=== PATIENT | female | born 1985 | race Two or more races ===

== ENCOUNTER 2017-03-12 21:08 | Emergency (ER) | payer SELFPAY ==
[2017-03-12 21:18] VITALS: BP 130/80; BMI 26.2
== END 2017-03-12 22:45 | disposition left against medical advice (07) ==
LOC: ER 21:23
DX: R10.84 Generalized abdominal pain (principal)
CPT/HCPCS: 99281

== ENCOUNTER 2017-05-23 19:12 | Emergency (ER) | payer SELFPAY ==
[2017-05-23 19:32] VITALS: BP 110/81; BMI 26.5
--- NOTE | 2017-05-23 19:42 | DR.GENAD ---
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 Past Surgical History Comment: tubal - Family History History of Family Medical Conditions: Yes Family Medical History: Coronary Artery Disease - Social History Does patient currently use any type of tobacco product: No Have you used tobacco products in the last 12 months: No Type of Tobacco Use: Cigarettes Does any household member use tobacco: No Alcohol Use: None Do you use any recreational Drugs:: No Lives With: Family Lives Where: Home - infectious screening In the last 2 months have you had wt loss of >10#?: NO Have you had fever, night sweats or hemotysis?: No Have you traveled outside the country in the last 6 months?: No Isolation: Standard ROS - Review of Systems Constitutional: negative: Diaphoresis Eyes: No Symptoms Reported ENTM: No Symptoms Reported Respiratoy: No Symptoms Reported Cardiovascular: No Symptoms Reported Gastrointestinal/Abdominal: No Symptoms Reported Genitourinary: No Symptoms Reported Neurological: No Symptoms Reported Musculoskeletal: Other (cellulitis superior anterior lateral back ) Integumentary: No Symptoms Reported Hematologic/Lymphatic: No Symptoms Reported Endocrine: No Symptoms Reported Psychiatric: No Symptoms Reported All Other Systems: Reviewed and Negative PE - Vital Signs Vitals: Temperature 97.9 F Pulse Rate 75 Respiratory Rate 14 Blood Pressure [Left Arm] 124/78 Blood Pressure 110/81 O2 Sat by Pulse Oximetry 99 - General Limitations: No Limitations General Appearance: Alert, In No Apparent Distress - Head Head Exam: Normal Inspection, Atraumatic - Eyes Eye exam: Normal Appearance, PERRL, EOMI - ENT ENT Exam: Normal Exam External Ear Exam: Normal External Inspection TM/Canal Exam: Bilateral Normal Nose Exam: Normal Nose Exam Mouth Exam: Normal Inspection Throat Exam: Normal Inspection - Chest Chest Inspection: Normal Inspection - Respiratory Respiratory Exam: Normal Lung Sounds Bilat Respiratory Exam: Bilateral Clear to Auscultation - Cardiovascular Cardiovascular Exam: Regular Rate - Abdominal Exam Abdominal Exam: Normal Inspection Abdominal Tenderness: negative: RUQ, RLQ, LUQ, LLQ, Epigastrium, Suprapubic, Diffuse, Mild, Moderate, Severe, Other - Extremities Extremities Exam: Normal Inspection - Back Back Exam: Normal Inspection, Tenderness (posterior superior lateral back with a 3cm dark erythematous lesion with ruptur centrally ) - Neurologic Neurological Exam: Alert, Oriented X3, CN II-XII Intact - Psychiatric Psychiatric Exam: Normal Affect - Skin Skin Exam: Warm, Dry, Intact Course - Treatment Treatment: ceftriaxone 1gm IM - Diagnosis Discharge Problem: Cellulitis of upper back excluding scapular region - Discharge Plan Condition: Stable - Follow ups/Referrals Follow ups/Referrals: NFD,None [Primary Care Provider] - 3 days - Instructions
[2017-05-23] MEDS ORDERED: ROCEPHIN VIAL 1 GM IM ONE (20:18)
[2017-05-23] MEDS ORDERED: ROCEPHIN VIAL 1 GM ONE (20:29)
== END 2017-05-23 20:45 | disposition home or self-care (01) ==
LOC: ER 19:12
DX: L03.312 Cellulitis of back [any part except buttock and flank] (principal); W57.XXXA Bitten or stung by nonvenomous insect and other nonvenomous arthropods, initial encounter; Y92.9 Unspecified place or not applicable
CPT/HCPCS: 96372; 99282; J0696

== ENCOUNTER 2017-12-03 21:04 | Emergency (ER) | payer SELFPAY ==
[2017-12-03 21:13] VITALS: BP 123/81; BMI 26.5
--- NOTE | 2017-12-03 21:38 | DR.GENAD ---
HPI - PCP Primary Care Physician: NFD - Complaint/Symptoms Chief Complaint Doctors Comments: Patient presents with complaint of RLQ pain and epigastric pain for one week. She denies vomiting or diarrhea or fever. Pain not relieved by tylenol/advil.The subxiphoid pain is sharp. 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 - Family History History of Family Medical Conditions: Yes Family Medical History: Coronary Artery Disease - Social History Does patient currently use any type of tobacco product: No Have you used tobacco products in the last 12 months: No Type of Tobacco Use: None Does any household member use tobacco: No Alcohol Use: None Do you use any recreational Drugs:: No Lives With: Family Lives Where: Home - infectious screening In the last 2 months have you had wt loss of >10#?: NO Have you had fever, night sweats or hemotysis?: No Have you traveled outside the country in the last 6 months?: No Isolation: Standard ROS - Review of Systems Eyes: No Symptoms Reported ENTM: No Symptoms Reported Respiratoy: No Symptoms Reported Cardiovascular: No Symptoms Reported Gastrointestinal/Abdominal: No Symptoms Reported Genitourinary: No Symptoms Reported Neurological: No Symptoms Reported Musculoskeletal: No Symptoms Reported Integumentary: No Symptoms Reported Hematologic/Lymphatic: No Symptoms Reported Endocrine: No Symptoms Reported Psychiatric: No Symptoms Reported All Other Systems: Reviewed and Negative PE - Vital Signs Vitals: Temperature 97.9 F Pulse Rate 73 Respiratory Rate 16 Blood Pressure [Left Arm] 124/78 Blood Pressure 123/81 O2 Sat by Pulse Oximetry 99 - General Limitations: Language Barrier General Appearance: Alert, In No Apparent Distress - Head Head Exam: Normal Inspection, Atraumatic - Eyes Eye exam: Normal Appearance, PERRL, Scleral Icterus - ENT ENT Exam: Normal Exam External Ear Exam: Normal External Inspection TM/Canal Exam: Bilateral Normal Nose Exam: Normal Nose Exam, Sinus Tenderness Mouth Exam: Normal Inspection Throat Exam: Normal Inspection - Neck Neck Exam: Normal Inspection, Full ROM - Chest Chest Inspection: Normal Inspection - Respiratory Respiratory Exam: Normal Lung Sounds Bilat Respiratory Exam: Bilateral Clear to Auscultation - Cardiovascular Cardiovascular Exam: Regular Rate, Normal Rhythm - Abdominal Exam Abdominal Exam: Normal Inspection, Normal Bowel Sounds Abdominal Tenderness: RLQ, LLQ, Epigastrium - Extremities Extremities Exam: Normal Inspection - Back Back Exam: Normal Inspection. negative: (R) CVA Tenderness, (L) CVA Tenderness - Neurologic Neurological Exam: Alert, Oriented X3, CN II-XII Intact - Psychiatric Psychiatric Exam: Normal Affect, Normal Mood - Skin Skin Exam: Warm, Dry, Intact Course - Reevaluation 1st: Unchanged ROR - Labs Reviewed Laboratory: C-Reactive Protein 1.30 mg/L (0-3.0) 12/03/17 22:03 Specimen Type Clean catch urine 12/03/17 21:56 Urine Color Yellow (YELLOW) 12/03/17 21:56 Urine Appearance Hazy (CLEAR) 12/03/17 21:56 Urine pH 7.0 (5.0 - 8.0) 12/03/17 21:56 Ur Specific Silva 1.015 (1.000-1.030) 12/03/17 21:56 Urine Protein Negative (NEGATIVE) 12/03/17 21:56 Urine Glucose (UA) Negative (NEGATIVE) 12/03/17 21:56 Urine Ketones Negative (NEGATIVE) 12/03/17 21:56 Urine Occult Blood Negative (NEGATIVE) 12/03/17 21:56 Urine Nitrite Negative (NEGATIVE) 12/03/17 21:56 Urine Bilirubin Negative (NEGATIVE) 12/03/17 21:56 Urine Urobilinogen Normal (NORMAL) 12/03/17 21:56 Ur Leukocyte Esterase Negative (NEGATIVE) 12/03/17 21:56 Urine RBC 0-3 /HPF (NONE SEEN) 12/03/17 21:56 Urine WBC 0-3 /HPF (NONE SEEN) 12/03/17 21:56 Ur Squamous Epith Cells Moderate /HPF (NEGATIVE) 12/03/17 21:56 Amorphous Sediment 1+ /HPF (NEGATIVE) 12/03/17 21:56 Urine Bacteria Trace /HPF (NEGATIVE) 12/03/17 21:56 Ur Culture Indicated? No/not indicated 12/03/17 21:56 H. pylori IgG Antibody Negative (NEGATIVE) 12/03/17 22:03 - XRAY XRAY Interpreted by: Radiologist (Acute Abdomen: Chest clear; abodmen constipation) - Diagnosis Discharge Problem: Constipation Qualifiers: Constipation type: slow transit constipation Qualified Code(s): K59.01 - Slow transit constipation - Discharge Plan Condition: Stable - Follow ups/Referrals Follow ups/Referrals: NFD,None [Primary Care Provider] - 3 days - Instructions
[2017-12-03] MEDS ORDERED: TORADOL 60 MG VIAL ONE (21:50)
[2017-12-03] MEDS ORDERED: TORADOL 60 MG VIAL IM ONE (21:50)
--- NOTE | 2017-12-03 22:25 | RAD ---
Abdominal series with PA chest Indication: Epigastric pain Comparison: None Findings: The heart size is normal and the lungs are essentially clear. No significant pleural abnorm ality. There is moderate colonic stool burden. The bowel gas pattern is nonobstructed. No free air or suspicious calcifications identified. Impression: No acute process. Suggestion of constipation. Reported By:
[2017-12-03 22:30] LABS: BILIRUBIN,URINE NEGATIVE (NEGATIVE); BLOOD/HEMOGLOBIN,URINE NEGATIVE (NEGATIVE); GLUCOSE, URINE NEGATIVE (NEGATIVE); KETONES,URINE NEGATIVE (NEGATIVE); LEUKOCYTE ESTERASE ,URINE NEGATIVE (NEGATIVE); NITRITES,URINE NEGATIVE (NEGATIVE); PROTEIN,URINE NEGATIVE (NEGATIVE); UROBILINOGEN,URINE NORMAL (NORMAL)
[2017-12-03 22:45] LABS: APPEARANCE,URINE HAZY (CLEAR); BACTERIA,URINE TRACE /HPF (NEGATIVE); COLOR,URINE YELLOW (YELLOW); RBC,URINE 0-3 /HPF (NONE SEEN); SQUAMOUS EPITHELIAL CELL,UR MODERATE /HPF (NEGATIVE)
[2017-12-03 22:46] LABS: AMORPHOUS SEDIMENT,UR 1+ /HPF (NEGATIVE)
[2017-12-03] MEDS ORDERED: CITROMA PO ONE (23:17)
[2017-12-03] MEDS ORDERED: CITROMA ONE (23:19)
== END 2017-12-03 23:24 | disposition home or self-care (01) ==
LOC: ER 21:23
DX: K59.01 Slow transit constipation (principal)
CPT/HCPCS: 36415; 74022; 81001; 86140; 86677; 96372; 99283; J1885

== ENCOUNTER 2024-03-15 19:45 | Inpatient (IN) ==
[2024-03-15 20:16] LABS: BILIRUBIN,URINE NEGATIVE (NEGATIVE); BLOOD/HEMOGLOBIN,URINE NEGATIVE (NEGATIVE); GLUCOSE, URINE NEGATIVE (NEGATIVE); KETONES,URINE NEGATIVE (NEGATIVE); LEUKOCYTE ESTERASE ,URINE NEGATIVE (NEGATIVE); NITRITES,URINE NEGATIVE (NEGATIVE); PROTEIN,URINE 1+ (NEGATIVE); UROBILINOGEN,URINE NORMAL (NORMAL)
[2024-03-15 20:25] LABS: HEMATOCRIT 37.6 % (36.0-47.0); HEMOGLOBIN 12.6 g/dL (12.0-16.0); RED CELL DISTRIBUTION WIDTH 13.8 % (11.6-16.5)
[2024-03-15 20:25] LABS: APPEARANCE,URINE CLEAR (CLEAR); COLOR,URINE YELLOW (YELLOW); RBC,URINE 0-2 /HPF (0-3)
[2024-03-15 20:26] LABS: BACTERIA,URINE TRACE /HPF (NEGATIVE); SQUAMOUS EPITHELIAL CELL,UR FEW /HPF (NEGATIVE)
[2024-03-15 20:28] LABS: BASOPHILS % (AUTO) 0.5 % (0.2-1.0); EOSINOPHILS # (AUTO) 0.1 x10^3/uL (0.0-0.2); EOSINOPHILS % (AUTO) 1.5 % (0.9-2.9); LYMPHOCYTES # (AUTO) 2.1 X10^3/uL (1.3-2.9); LYMPHOCYTES % (AUTO) 22.1 % (21.0-51.0); MEAN CORPUSCULAR HEMOGLOBIN 32.4 pg (27.0-34.0); MEAN CORPUSCULAR HGB CONC 33.6 g/dL (33.0-35.0); MEAN CORPUSCULAR VOLUME 96.2 fL (80.0-100.0); MONOCYTES # (AUTO) 0.9 x10^3/uL (0.3-0.8); MONOCYTES % (AUTO) 9.3 % (0.0-13.0); NEUTROPHILS # (AUTO) 6.2 x10^3/uL (2.2-4.8); NEUTROPHILS % (AUTO) 66.6 % (42.0-75.0); PLATELET COUNT 332 X10^3/uL (150.0-450.0); RED BLOOD COUNT 3.91 X10^6/uL (3.5-5.4); WHITE BLOOD COUNT 9.3 X10^3/uL (3.6-10.0)
[2024-03-15 20:31] LABS: ABG BASE EXCESS 0.6 mmol/L (-2.0-2.0); ABG HCO3 24.3 mmol/L (22-26)
[2024-03-15 20:32] LABS: ABG ALLEN TEST POS
[2024-03-15 20:35] LABS: ALANINE AMINOTRANSFERASE 69 Units/L (12-78); ALBUMIN 3.1 g/dL (3.4-5.0); ALKALINE PHOSPHATASE 160 Units/L (46-116); ASPARTATE AMINO TRANSFERASE 48 Units/L (15-37); BLOOD UREA NITROGEN 5 mg/dL (7-18); CALCIUM 8.9 mg/dL (8.5-10.1); CARBON DIOXIDE 29.6 mmol/L (21-32); CHLORIDE 101 mmol/L (98-107); COR CA(FOR HYPOALB) 9.6 mg/dL (8.5-10.1); CREATININE 0.75 mg/dL (0.55-1.02); GLUCOSE 97 mg/dL (65-99); POTASSIUM 3.9 mmol/L (3.5-5.1); SODIUM 137 mmol/L (136-145); eGFR NON BLACK RACES > 60 (>60)
[2024-03-15] MEDS ORDERED: NS 500 ML IV 500 ML IV ONE (21:35)
[2024-03-15] MEDS ORDERED: OMNIPAQUE 350 mg/mL 100 mL BTL 100 ML ONE (21:35)
--- NOTE | 2024-03-15 21:41 | DR.FBACK ---
HPI Time Seen Time Seen by Provider: 03/15/24 21:40 PCP Primary Care Physician: [facility]. Complaint Chief Complaint Doctor Comments: Patient began to cough 1 week ago. She states that it is a productive cough (yellow sputum). Patient states that she has also had fever, chills, sweats intermittently for the past week, diarrhea, occipital gibson. Patient denies: h/o tobacco use, second hand smoke exposure, asthma, rhinorrhea, n, v, abdominal pain. Chief Complaint:: pt in ed with complaints of cough,sob,fever x 3 days, pt oz in triage noted to be 88% and pt has persistent cough. 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 Family History History of Family Medical Conditions: Yes Family Medical History: Hypertension Social History Do you use any recreational Drugs:: No Travel Risk Coronavirus risk:travel/contact w/high risk person: No Has patient experienced Coronavirus symptoms: No Infectious screening Have you traveled outside the country in the last 6 months?: No Isolation: Droplet ROS Review of Systems Constitutional: Chills, Fever and Other (sweats) Eyes: No Symptoms Reported ENTM: No Symptoms Reported Respiratoy: Productive Cough (yellow) and Short of Breath Cardiovascular: No Symptoms Reported Gastrointestinal/Abdominal: Diarrhea Genitourinary: No Symptoms Reported Neurological: Headache Musculoskeletal: Back Pain Integumentary: No Symptoms Reported Hematologic/Lymphatic: No Symptoms Reported Endocrine: No Symptoms Reported Psychiatric: No Symptoms Reported All Other Systems: Reviewed and Negative PE Vitals Vital Signs: Temp Pulse Resp BP Pulse Ox O2 Del Method 03/15/24 22:34 20 03/15/24 21:34 20 98 Nasal Cannula 03/15/24 20:10 97.7 F 90 24 122/81 88 L 03/15/24 15:41 118/84 General Limitations: No Limitations General Appearance: Alert and In No Apparent Distress Head Head Exam: Normal Inspection Eyes Eye exam: Normal Appearance ENT ENT Exam: Normal Exam Chest Chest Inspection: Normal Inspection Respiratory Respiratory Exam: Normal Lung Sounds Bilat Respiratory Exam: Bilateral: Clear to Auscultation Cardiovascular Cardiovascular Exam: Regular Rate and Normal Rhythm Abdominal Exam Abdominal Exam: Normal Inspection, Normal Bowel Sounds and Soft Genitourinary External Exam: Female: Deferred : Speculum Exam (Female): Deferred : Bimanual Exam (female): Deferred Extremities Extremities Exam: Normal Inspection Back Back Exam: Normal Inspection Neurological Neurological Exam: Alert and Oriented X3 Psychiatric Psychiatric Exam: Normal Affect and Normal Mood Skin Skin Exam: Warm, Dry, Intact and Normal Color MDM Differential Diagnosis Differential Diagnosis: Aortic Dissection (DDx: Pneumonia,PE,Asthma,COPD,electrolyte disorder), Musculoskeletal Pain and Strain COURSE Treatment Treatment: Patient was brought to an exam room and IV access was initiated. Patient received Tylenol 1 g for her headache, and albuterol neb for the persistent coughing. A review of patient's labs and tests revealed: CBC (wbc 9.3), D-dimer 0.97, CMP stable, lactic acid 0.7, COVID-19 negative, ABG PH 7.45/PC02 35/P02 60/HC03 24.3/02 SAT 92%/RA. Patient is receiving azithromycin 500 mg IV x 1 dose in the ER. She will also receive doxycycline 100 mg IV during her hospital course. Patient's CTA chest did not reveal a PE, it revealed bilateral pneumonia atypical. Discussed case with Dr. Murillo. Dr. Murillo has accepted the patient to his service at [facility]. ROR Labs Reviewed Laboratory Results Reviewed?: Yes 03/15/24 20:10 03/15/24 20:10 Laboratory: WBC 9.3 X10^3/uL (3.6-10.0) 03/15/24 20:10 RBC 3.91 X10^6/uL (3.5-5.4) 03/15/24 20:10 Hgb 12.6 g/dL (12.0-16.0) 03/15/24 20:10 Hct 37.6 % (36.0-47.0) 03/15/24 20:10 MCV 96.2 fL (80.0-100.0) 03/15/24 20:10 MCH 32.4 pg (27.0-34.0) 03/15/24 20:10 MCHC 33.6 g/dL (33.0-35.0) 03/15/24 20:10 RDW 13.8 % (11.6-16.5) 03/15/24 20:10 Plt Count 332 X10^3/uL (150.0-450.0) 03/15/24 20:10 MPV 8.0 fL (7.4-11.0) 03/15/24 20:10 Neut % (Auto) 66.6 % (42.0-75.0) 03/15/24 20:10 Lymph % (Auto) 22.1 % (21.0-51.0) 03/15/24 20:10 O'Brien % (Auto) 9.3 % (0.0-13.0) 03/15/24 20:10 Eos % (Auto) 1.5 % (0.9-2.9) 03/15/24 20:10 Baso % (Auto) 0.5 % (0.2-1.0) 03/15/24 20:10 Neut # (Auto) 6.2 x10^3/uL (2.2-4.8) H 03/15/24 20:10 Lymph # (Auto) 2.1 X10^3/uL (1.3-2.9) 03/15/24 20:10 O'Brien # (Auto) 0.9 x10^3/uL (0.3-0.8) H 03/15/24 20:10 Eos # (Auto) 0.1 x10^3/uL (0.0-0.2) 03/15/24 20:10 Baso # (Auto) 0.0 X10^3/uL (0.0-0.1) 03/15/24 20:10 Absolute Nucleated RBC 0.1 /100WBC 03/15/24 20:10 APTT 36.4 SECONDS (22.9-36.5) 03/15/24 20:10 PTT Comment - 03/15/24 20:10 D-Dimer 0.97 ug/ml (0.0-0.57) H 03/15/24 20:10 Sample Site L rad 03/15/24 20:25 ABG pH 7.450 (7.35-7.45) 03/15/24 20:25 ABG pCO2 35.0 mmHg (35.0-45.0) 03/15/24 20:25 ABG pO2 60.0 mmHg (80.0-100.0) L 03/15/24 20:25 ABG HCO3 24.3 mmol/L (22-26) 03/15/24 20:25 ABG O2 Saturation 92.0 % (90-100) 03/15/24 20:25 ABG Base Excess 0.6 mmol/L (-2.0-2.0) 03/15/24 20:25 Preston Test Pos 03/15/24 20:25 A-a Gradient 46.0 mmHg 03/15/24 20:25 FiO2 21.0 03/15/24 20:25 Blood Gas Comments Marilyn well grant manager 03/15/24 20:25 Sodium 137 mmol/L (136-145) 03/15/24 20:10 Corrected Sodium TNP 03/15/24 20:10 Potassium 3.9 mmol/L (3.5-5.1) 03/15/24 20:10 Chloride 101 mmol/L (98-107) 03/15/24 20:10 Carbon Dioxide 29.6 mmol/L (21-32) 03/15/24 20:10 BUN 5 mg/dL (7-18) L 03/15/24 20:10 Creatinine 0.75 mg/dL (0.55-1.02) 03/15/24 20:10 Est GFR (MDRD) Af Amer > 60 (>60) 03/15/24 20:10 Est GFR (MDRD) Non-Af > 60 (>60) 03/15/24 20:10 Glucose 97 mg/dL (65-99) 03/15/24 20:10 Lactic Acid 0.7 mmol/L (0.4-2.0) 03/15/24 20:10 Calcium 8.9 mg/dL (8.5-10.1) 03/15/24 20:10 Corrected Calcium 9.6 mg/dL (8.5-10.1) 03/15/24 20:10 Total Bilirubin 0.30 mg/dL (0.2-1.0) 03/15/24 20:10 AST 48 Units/L (15-37) H 03/15/24 20:10 ALT 69 Units/L (12-78) 03/15/24 20:10 Alkaline Phosphatase 160 Units/L (46-116) H 03/15/24 20:10 Total Protein 8.0 g/dL (6.4-8.2) 03/15/24 20:10 Albumin 3.1 g/dL (3.4-5.0) L 03/15/24 20:10 Globulin 4.9 g/dL (2.5-4.5) H 03/15/24 20:10 Albumin/Globulin Ratio 0.6 Ratio (1.1-2.1) L 03/15/24 20:10 Specimen Type Clean catch urine 03/15/24 19:57 Urine Color Yellow (YELLOW) 03/15/24 19:57 Urine Appearance Clear (CLEAR) 03/15/24 19:57 Urine pH 6.0 (5.0 - 8.0) 03/15/24 19:57 Ur Specific [place] 1.020 (1.000-1.030) 03/15/24 19:57 Urine Protein 1+ (NEGATIVE) 03/15/24 19:57 Urine Glucose (UA) Negative (NEGATIVE) 03/15/24 19:57 Urine Ketones Negative (NEGATIVE) 03/15/24 19:57 Urine Blood Negative (NEGATIVE) 03/15/24 19:57 Urine Nitrite Negative (NEGATIVE) 03/15/24 19:57 Urine Bilirubin Negative (NEGATIVE) 03/15/24 19:57 Urine Urobilinogen Normal (NORMAL) 03/15/24 19:57 Ur Leukocyte Esterase Negative (NEGATIVE) 03/15/24 19:57 Urine RBC 0-2 /HPF (0-3) 03/15/24 19:57 Urine WBC 0-2 /HPF (0-5) 03/15/24 19:57 Ur Squamous Epith Cells Few /HPF (NEGATIVE) 03/15/24 19:57 Urine Bacteria Trace /HPF (NEGATIVE) 03/15/24 19:57 Ur Culture Indicated? No/not indicated 03/15/24 19:57 SARS-CoV-2 (PCR) Negative (NEGATIVE) 03/15/24 19:57 Opioid Opioid Risk Tool Age (Sylvain box if 16-45): Yes History of Preadolescent Sexual Abuse: No Total: 1 Total Score Risk Category: Low Risk Copyright: Robby OLMSTEAD predicting aberrant behaviors Discharge Plan Diagnosis Discharge Problem: Pneumonia of both lungs Discharge Plan Patient Disposition: ADMITTED INPATIENT Condition: Stable Prescriptions: No Action levofloxacin 750 mg tablet 750 mg PO QDAY 5 Days Qty: 5 0RF Health Concerns: Post Hospitalization: new medications and changes needed to prevent readmission or further decline. Pt educated and given instructions on all concerns. Plan of Treatment: Continue with present treatment and follow up plan. Pt is to keep follow up appointment as instructed and take medications as ordered. Orders to Discharge Patient Discharge Orders: Transfer (Routine); Ordered 03/15/24 Ordered By: Nicci Anne Follow ups/Referrals Follow ups/Referrals: NFD,None [Primary Care Provider] - 3 days Instructions Stand Alone Forms: Post Hospital Follow Up Care
--- NOTE | 2024-03-15 22:12 | CT ---
EXAM: CTA, CHEST HISTORY: CHEST PAIN, ELEVATED D-DIMER; COMPARISON: None. TECHNIQUE: Axial CT images of the chest were obtained after the administration of IV contrast utilizing a CTA pr otocol. 3D MIPS were performed and reviewed for further evaluation. Radiation dose: 259.40 mGy-cm total DLP FINDINGS: No significant pericardial effusion. No mediastinal or hilar lymphadenopathy. Aorta is normal in caliber without dissection. Pulmonary arteries are normal in caliber without filling defects to suggest a pulmonary embolus. Airways are widely patent. Thyroid appears normal. No pleural effusion. No consolidation. Diffuse bronchial wall thickening with centrilobular infiltrates in the right upper lobe, middle lobe , lingula and lower lobes. No pneumothorax. No concerning lung parenchymal lesion identified. Diffuse fatty infiltration of the liver. Otherwise, the imaged portion of the upper abdomen is unremarkable. No acute osseous abnormality. IMPRESSION: 1. Diffuse bronchial wall thickening with centrilobular infiltrates in the right upper lobe, middle l obe, lingula and lower lobes. Findings could represent the sequela of an atypical/viral infectious p rocess. 2. No pulmonary embolus identified. 3. Diffuse fatty infiltration of the liver. THIS IS AN ELECTRONICALLY VERIFIED FINAL REPORT 03/15/2024 10:09 PM - Electronically signed by Man Da Silva MD
[2024-03-15] MEDS ORDERED: NS 1,000 ML IV 1,000 ML ONE (22:29)
[2024-03-15] MEDS: ZITHROMAX INJ 500 MG VIAL 500 MG in NS 250 ML IV 250 ML IV SCH (22:33)
[2024-03-15] MEDS: TYLENOL 500 MG TAB EXTRA STRENGTH PO ONE (22:34)
[2024-03-15] MEDS: PROVENTIL NEB TX 0.083% 2.5MG/ 3ML NEB ONE (23:25)
[2024-03-16 00:26] VITALS: BMI 31.6
[2024-03-16] MEDS: NS 1,000 ML IV 1,000 ML IV SCH (02:05)
[2024-03-16 06:45] LABS: BASOPHILS % (AUTO) 0.6 % (0.2-1.0); EOSINOPHILS # (AUTO) 0.1 x10^3/uL (0.0-0.2); EOSINOPHILS % (AUTO) 1.2 % (0.9-2.9); HEMATOCRIT 35.7 % (36.0-47.0); HEMOGLOBIN 12.1 g/dL (12.0-16.0); LYMPHOCYTES # (AUTO) 1.8 X10^3/uL (1.3-2.9); LYMPHOCYTES % (AUTO) 23.3 % (21.0-51.0); MEAN CORPUSCULAR HEMOGLOBIN 33.7 pg (27.0-34.0); MEAN CORPUSCULAR HGB CONC 33.8 g/dL (33.0-35.0); MEAN CORPUSCULAR VOLUME 99.9 fL (80.0-100.0); MEAN PLATELET VOLUME 7.8 fL (7.4-11.0); MONOCYTES # (AUTO) 0.8 x10^3/uL (0.3-0.8); MONOCYTES % (AUTO) 10.9 % (0.0-13.0); NEUTROPHILS # (AUTO) 4.9 x10^3/uL (2.2-4.8); PLATELET COUNT 316 X10^3/uL (150.0-450.0); RED BLOOD COUNT 3.58 X10^6/uL (3.5-5.4); RED CELL DISTRIBUTION WIDTH 13.8 % (11.6-16.5); WHITE BLOOD COUNT 7.7 X10^3/uL (3.6-10.0)
[2024-03-16 06:56] LABS: ALANINE AMINOTRANSFERASE 62 Units/L (12-78); ALBUMIN 2.7 g/dL (3.4-5.0); ALKALINE PHOSPHATASE 139 Units/L (46-116); ASPARTATE AMINO TRANSFERASE 45 Units/L (15-37); BLOOD UREA NITROGEN 5 mg/dL (7-18); CALCIUM 8.5 mg/dL (8.5-10.1); CARBON DIOXIDE 25.6 mmol/L (21-32); CHLORIDE 104 mmol/L (98-107); COR CA(FOR HYPOALB) 9.5 mg/dL (8.5-10.1); GLUCOSE 98 mg/dL (65-99); POTASSIUM 3.5 mmol/L (3.5-5.1); SODIUM 139 mmol/L (136-145); TOTAL PROTEIN 7.2 g/dL (6.4-8.2); eGFR NON BLACK RACES > 60 (>60)
[2024-03-16] MEDS ORDERED: PROVENTIL NEB TX 0.083% 2.5MG/ 3ML NEB SCH (08:03)
[2024-03-16] MEDS ORDERED: ZOFRAN INJ 4 MG VIAL IVP PRN (08:03)
[2024-03-16] MEDS ORDERED: MOTRIN TAB 800 MG PO PRN (08:03)
[2024-03-16] MEDS: PULMICORT NEB TX 0.5 MG NEB SCH (08:35)
[2024-03-16] MEDS: DUONEB 0.5 MG/3 MG (3 mL) NEB SCH (08:35)
[2024-03-16] MEDS: VIBRAMYCIN 100 MG in D5W 250 ML IV 250 ML IV SCH (09:10)
[2024-03-16] MEDS: TYLENOL 500 MG TAB EXTRA STRENGTH PO PRN (10:08)
[2024-03-16] MEDS: ROBITUSSIN CF SYRUP PO SCH (10:30)
[2024-03-16] MEDS: SOLU-Medrol 125 MG VIAL IVP SCH (10:30)
[2024-03-16] MEDS: PROTONIX TAB 40 MG PO SCH (10:30)
[2024-03-16] MEDS: ZITHROMAX INJ 500 MG VIAL IV ONE (13:59)
--- NOTE | 2024-03-16 17:52 | DR.H&P ---
H&P History & Physical for Day of: H&P Date: 03/15/24 Chief Complaint Chief Complaint: fever, ccc, gibson History of Present Illness History of Present Illness: Patient began to cough 1 week ago. She states that it is a productive cough (yellow sputum). Patient states that she has also had fever, chills, sweats intermittently for the past week, diarrhea, occipital gibson. Patient denies: h/o tobacco use, second hand smoke exposure, asthma, rhinorrhea, n, v, abdominal pain. Chief Complaint:: pt in ed with complaints of cough,sob,fever x 3 days, pt oz in triage noted to be 88% and pt has persistent cough. 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 Family History Family Medical History: Diabetes Mellitus and Hypertension Social History Does patient currently use any type of tobacco product: No Have you used tobacco products in the last 12 months: No Type of Tobacco Use: None Alcohol Use: None Drug Use: None Allergies Allergies Allergy/AdvReac Type Severity Reaction Status Date / Time No Known Drug Allergies Allergy Verified 03/15/24 15:43 Labs 03/16/24 05:47 03/16/24 05:47 Labs: 03/16/24 11:42 Sputum - Expectorated Sputum - Final Laboratory WBC 7.7 X10^3/uL (3.6-10.0) 03/16/24 05:47 RBC 3.58 X10^6/uL (3.5-5.4) 03/16/24 05:47 Hgb 12.1 g/dL (12.0-16.0) 03/16/24 05:47 Hct 35.7 % (36.0-47.0) L 03/16/24 05:47 MCV 99.9 fL (80.0-100.0) 03/16/24 05:47 MCH 33.7 pg (27.0-34.0) 03/16/24 05:47 MCHC 33.8 g/dL (33.0-35.0) 03/16/24 05:47 RDW 13.8 % (11.6-16.5) 03/16/24 05:47 Plt Count 316 X10^3/uL (150.0-450.0) 03/16/24 05:47 MPV 7.8 fL (7.4-11.0) 03/16/24 05:47 Neut % (Auto) 64.0 % (42.0-75.0) 03/16/24 05:47 Lymph % (Auto) 23.3 % (21.0-51.0) 03/16/24 05:47 [place] % (Auto) 10.9 % (0.0-13.0) 03/16/24 05:47 Eos % (Auto) 1.2 % (0.9-2.9) 03/16/24 05:47 Baso % (Auto) 0.6 % (0.2-1.0) 03/16/24 05:47 Neut # (Auto) 4.9 x10^3/uL (2.2-4.8) H 03/16/24 05:47 Lymph # (Auto) 1.8 X10^3/uL (1.3-2.9) 03/16/24 05:47 [place] # (Auto) 0.8 x10^3/uL (0.3-0.8) 03/16/24 05:47 Eos # (Auto) 0.1 x10^3/uL (0.0-0.2) 03/16/24 05:47 Baso # (Auto) 0.0 X10^3/uL (0.0-0.1) 03/16/24 05:47 Absolute Nucleated RBC 0.1 /100WBC 03/16/24 05:47 APTT 36.4 SECONDS (22.9-36.5) 03/15/24 20:10 PTT Comment - 03/15/24 20:10 D-Dimer 0.97 ug/ml (0.0-0.57) H 03/15/24 20:10 Sample Site L rad 03/15/24 20:25 ABG pH 7.450 (7.35-7.45) 03/15/24 20:25 ABG pCO2 35.0 mmHg (35.0-45.0) 03/15/24 20:25 ABG pO2 60.0 mmHg (80.0-100.0) L 03/15/24 20:25 ABG HCO3 24.3 mmol/L (22-26) 03/15/24 20:25 ABG O2 Saturation 92.0 % (90-100) 03/15/24 20:25 ABG Base Excess 0.6 mmol/L (-2.0-2.0) 03/15/24 20:25 Preston Test Pos 03/15/24 20:25 A-a Gradient 46.0 mmHg 03/15/24 20:25 FiO2 21.0 03/15/24 20:25 Blood Gas Comments Marilyn well wreath maker 03/15/24 20:25 Sodium 139 mmol/L (136-145) 03/16/24 05:47 Corrected Sodium TNP 03/16/24 05:47 Potassium 3.5 mmol/L (3.5-5.1) 03/16/24 05:47 Chloride 104 mmol/L (98-107) 03/16/24 05:47 Carbon Dioxide 25.6 mmol/L (21-32) 03/16/24 05:47 BUN 5 mg/dL (7-18) L 03/16/24 05:47 Creatinine 0.60 mg/dL (0.55-1.02) 03/16/24 05:47 Est GFR (MDRD) Af Amer > 60 (>60) 03/16/24 05:47 Est GFR (MDRD) Non-Af > 60 (>60) 03/16/24 05:47 Glucose 98 mg/dL (65-99) 03/16/24 05:47 Lactic Acid 0.7 mmol/L (0.4-2.0) 03/15/24 20:10 Calcium 8.5 mg/dL (8.5-10.1) 03/16/24 05:47 Corrected Calcium 9.5 mg/dL (8.5-10.1) 03/16/24 05:47 Total Bilirubin 0.20 mg/dL (0.2-1.0) 03/16/24 05:47 AST 45 Units/L (15-37) H 03/16/24 05:47 ALT 62 Units/L (12-78) 03/16/24 05:47 Alkaline Phosphatase 139 Units/L (46-116) H 03/16/24 05:47 Total Protein 7.2 g/dL (6.4-8.2) 03/16/24 05:47 Albumin 2.7 g/dL (3.4-5.0) L 03/16/24 05:47 Globulin 4.5 g/dL (2.5-4.5) 03/16/24 05:47 Albumin/Globulin Ratio 0.6 Ratio (1.1-2.1) L 03/16/24 05:47 Specimen Type Clean catch urine 03/15/24 19:57 Urine Color Yellow (YELLOW) 03/15/24 19:57 Urine Appearance Clear (CLEAR) 03/15/24 19:57 Urine pH 6.0 (5.0 - 8.0) 03/15/24 19:57 Ur Specific [place] 1.020 (1.000-1.030) 03/15/24 19:57 Urine Protein 1+ (NEGATIVE) 03/15/24 19:57 Urine Glucose (UA) Negative (NEGATIVE) 03/15/24 19:57 Urine Ketones Negative (NEGATIVE) 03/15/24 19:57 Urine Blood Negative (NEGATIVE) 03/15/24 19:57 Urine Nitrite Negative (NEGATIVE) 03/15/24 19:57 Urine Bilirubin Negative (NEGATIVE) 03/15/24 19:57 Urine Urobilinogen Normal (NORMAL) 03/15/24 19:57 Ur Leukocyte Esterase Negative (NEGATIVE) 03/15/24 19:57 Urine RBC 0-2 /HPF (0-3) 03/15/24 19:57 Urine WBC 0-2 /HPF (0-5) 03/15/24 19:57 Ur Squamous Epith Cells Few /HPF (NEGATIVE) 03/15/24 19:57 Urine Bacteria Trace /HPF (NEGATIVE) 03/15/24 19:57 Ur Culture Indicated? No/not indicated 03/15/24 19:57 SARS-CoV-2 (PCR) Negative (NEGATIVE) 03/15/24 19:57 Review of Systems Constitutional: Fever, Weakness and Malaise Eyes: No Symptoms Reported ENT: No Symptoms Reported, Nose Congestion and Throat Pain Respiratory: Cough, Shortness of Breath and SOB with Excertion Cardiovascular: No Symptoms Reported Gastrointestinal: Nausea Genitourinary: No Symptoms Reported Musculoskeletal: No Symptoms Reported Skin: No Symptoms Reported Neurological: Other (headache) Physical Exam Vital Signs: Vital Signs Temperature 97.0 F Temperature 98.0 F Pulse Rate [Brachial] 72 Pulse Rate [Brachial] 74 Respiratory Rate 25 Respiratory Rate 20 Respiratory Rate 16 Blood Pressure [Left Arm] 120/75 Blood Pressure [Left Arm] 102/64 O2 Sat by Pulse Oximetry 96 O2 Sat by Pulse Oximetry 99 Oriented: Normal Eyes: Normal Ear: Normal Nose: Normal Throat: Red Respiratory: Wheezes Throughout Cardiovascular: Normal : Normal Auscultation: Bowel Sounds: Normal Palpation: Normal Tenderness: Normal Skin: Normal Musculoskeletal: Normal Psychiatric: Normal Mood Description: Calm Speech Pattern: Clear and Appropriate Assessment/Plan (1) Pneumonia of both lungs: Narrative Support Text: admit, iv atbx resp therapy supplemental o2 cta obtained in er ait collected, verify home medications Status: Acute (2) Hypoxemia: Status: Acute
[2024-03-17 05:03] LABS: BASOPHILS # (AUTO) 0.1 X10^3/uL (0.0-0.1); BASOPHILS % (AUTO) 0.5 % (0.2-1.0); HEMATOCRIT 36.1 % (36.0-47.0); HEMOGLOBIN 11.9 g/dL (12.0-16.0); LYMPHOCYTES # (AUTO) 1.2 X10^3/uL (1.3-2.9); LYMPHOCYTES % (AUTO) 10.5 % (21.0-51.0); MEAN CORPUSCULAR HEMOGLOBIN 32.4 pg (27.0-34.0); MEAN CORPUSCULAR HGB CONC 32.9 g/dL (33.0-35.0); MEAN CORPUSCULAR VOLUME 98.4 fL (80.0-100.0); MEAN PLATELET VOLUME 8.2 fL (7.4-11.0); MONOCYTES # (AUTO) 0.4 x10^3/uL (0.3-0.8); MONOCYTES % (AUTO) 3.7 % (0.0-13.0); NEUTROPHILS # (AUTO) 9.8 x10^3/uL (2.2-4.8); NEUTROPHILS % (AUTO) 85.3 % (42.0-75.0); PLATELET COUNT 377 X10^3/uL (150.0-450.0); RED BLOOD COUNT 3.67 X10^6/uL (3.5-5.4); RED CELL DISTRIBUTION WIDTH 14.3 % (11.6-16.5); WHITE BLOOD COUNT 11.5 X10^3/uL (3.6-10.0)
[2024-03-17 05:22] LABS: ABG BASE EXCESS 0.2 mmol/L (-2.0-2.0)
[2024-03-17 05:23] LABS: ABG ALLEN TEST POS
[2024-03-17 05:30] LABS: ALANINE AMINOTRANSFERASE 81 Units/L (12-78); ALBUMIN 2.9 g/dL (3.4-5.0); ALKALINE PHOSPHATASE 164 Units/L (46-116); ASPARTATE AMINO TRANSFERASE 55 Units/L (15-37); BLOOD UREA NITROGEN 2 mg/dL (7-18); CALCIUM 8.7 mg/dL (8.5-10.1); CARBON DIOXIDE 24.8 mmol/L (21-32); CHLORIDE 103 mmol/L (98-107); COR CA(FOR HYPOALB) 9.6 mg/dL (8.5-10.1); COR NA(FOR HYPERGLY) 143 mmol/L (136-145); GLUCOSE 193 mg/dL (65-99); MAGNESIUM 2.1 mg/dL (2.0-2.9); POTASSIUM 3.6 mmol/L (3.5-5.1); SODIUM 141 mmol/L (136-145); TOTAL PROTEIN 7.5 g/dL (6.4-8.2); eGFR NON BLACK RACES > 60 (>60)
[2024-03-17] MEDS ORDERED: CONSULT PHARMACY - POTASSIUM & MAGNESIUM XX SCH (06:00)
--- NOTE | 2024-03-17 06:20 | RAD ---
EXAM: CHEST, 1 VIEW HISTORY: BILATERAL PNEUMONIA, SOB, HYPOXIA; COMPARISON: None available. FINDINGS: The trachea is midline. The cardiac silhouette is unremarkable . The lungs are clear without focal infiltrate or effusion. The bony thorax is unremarkable. IMPRESSION: No acute cardiopulmonary disease. THIS IS AN ELECTRONICALLY VERIFIED FINAL REPORT 03/17/2024 6:17 AM - Electronically signed by Sae Morrow MD
[2024-03-17] MEDS: K-DUR TAB 20 MEQ PO SCH (06:30)
[2024-03-18 05:35] LABS: BASOPHILS % (AUTO) 0.1 % (0.2-1.0); HEMATOCRIT 33.8 % (36.0-47.0); HEMOGLOBIN 11.2 g/dL (12.0-16.0); LYMPHOCYTES # (AUTO) 1.1 X10^3/uL (1.3-2.9); LYMPHOCYTES % (AUTO) 5.9 % (21.0-51.0); MEAN CORPUSCULAR HEMOGLOBIN 32.7 pg (27.0-34.0); MEAN CORPUSCULAR VOLUME 99.3 fL (80.0-100.0); MEAN PLATELET VOLUME 8.4 fL (7.4-11.0); MONOCYTES # (AUTO) 0.6 x10^3/uL (0.3-0.8); MONOCYTES % (AUTO) 3.3 % (0.0-13.0); NEUTROPHILS # (AUTO) 16.8 x10^3/uL (2.2-4.8); NEUTROPHILS % (AUTO) 90.7 % (42.0-75.0); PLATELET COUNT 392 X10^3/uL (150.0-450.0); RED BLOOD COUNT 3.41 X10^6/uL (3.5-5.4); RED CELL DISTRIBUTION WIDTH 14.2 % (11.6-16.5); WHITE BLOOD COUNT 18.6 X10^3/uL (3.6-10.0)
[2024-03-18 05:45] LABS: ALANINE AMINOTRANSFERASE 68 Units/L (12-78); ALBUMIN 2.6 g/dL (3.4-5.0); ALKALINE PHOSPHATASE 135 Units/L (46-116); ASPARTATE AMINO TRANSFERASE 35 Units/L (15-37); BLOOD UREA NITROGEN 6 mg/dL (7-18); CALCIUM 8.5 mg/dL (8.5-10.1); CARBON DIOXIDE 25.2 mmol/L (21-32); CHLORIDE 106 mmol/L (98-107); COR CA(FOR HYPOALB) 9.6 mg/dL (8.5-10.1); COR NA(FOR HYPERGLY) 142 mmol/L (136-145); GLUCOSE 170 mg/dL (65-99); POTASSIUM 3.9 mmol/L (3.5-5.1); SODIUM 140 mmol/L (136-145); TOTAL PROTEIN 6.8 g/dL (6.4-8.2); eGFR NON BLACK RACES > 60 (>60)
[2024-03-18 05:56] LABS: BAND NEUTROPHILS % 5 % (0-10); PLATELET MORPHOLOGY COMMENT NORMAL (NORMAL)
[2024-03-18] MEDS: VIBRAMYCIN IV ONE (09:01)
--- NOTE | 2024-03-18 13:01 | PCM.PROG ---
Progress Note Progress Note for Day of Date of Exam: 03/18/24 Subjective Subjective: Patient seen at bedside, no acute events overnight. She is feeling better. She is admitted for Mycoplasma pneumonia. She has been on 2L NC, currently on room air. She states having some dyspnea with exertion. She has been coughing but has improved. She is on Azithromycin and Doxycycline. She is also getting solumedrol. Labs/imaging reviewed -WBC 18.8 Hgb 11.2 -AIT: Mycoplasma -CXR: no acute process -Sputum Cx: neg Plan: Wean O2 as tolerated, continue nebs and cough suppressant. Continue antibiotics. Encourage ambulation as tolerated. Continue IS. Monitor AM labs/imaging. Past Medical Family Social History Allergies: Allergies No Known Drug Allergies Allergy (Verified 03/15/24 15:43) Vital Signs and I&O's Vital Signs: Vital Signs Temperature 96.9 F Pulse Rate [Brachial] 88 Pulse Rate 83 Respiratory Rate 18 Blood Pressure [Right Arm] 127/65 O2 Sat by Pulse Oximetry 96 O2 Sat by Pulse Oximetry 100 Intake and Output: Intake & Output 03/15/24 03/16/24 03/17/24 03/18/24 23:59 23:59 23:59 23:59 Intake Total 1946 3279 / 3279 913 / 913 Output Total 0 / 0 Balance 1946 3279 / 3279 913 / 913 Physical Exam Oriented: Normal Eyes: Normal Ear: Normal Nose: Normal Throat: Red Respiratory: Generalized and Diminished Cardiovascular: Normal Auscultation: Bowel Sounds: Normal Palpation: Normal Tenderness: Normal Skin: Normal Musculoskeletal: Normal Psychiatric: Normal Mood Description: Calm Speech Pattern: Clear and Appropriate Laboratory and Diagnostics 03/18/24 04:50 03/18/24 04:50 Labs: 03/16/24 11:42 Sputum - Expectorated Sputum Sputum Culture - Final 03/16/24 11:42 Sputum - Expectorated Sputum - Final 03/15/24 20:40 Blood Blood Culture - Preliminary 03/15/24 20:10 Blood Blood Culture - Preliminary Laboratory WBC 18.6 X10^3/uL (3.6-10.0) H 03/18/24 04:50 RBC 3.41 X10^6/uL (3.5-5.4) L 03/18/24 04:50 Hgb 11.2 g/dL (12.0-16.0) L 03/18/24 04:50 Hct 33.8 % (36.0-47.0) L 03/18/24 04:50 MCV 99.3 fL (80.0-100.0) 03/18/24 04:50 MCH 32.7 pg (27.0-34.0) 03/18/24 04:50 MCHC 33.0 g/dL (33.0-35.0) 03/18/24 04:50 RDW 14.2 % (11.6-16.5) 03/18/24 04:50 Plt Count 392 X10^3/uL (150.0-450.0) 03/18/24 04:50 Plt Count Comment Adequate (ADEQUATE) 03/18/24 04:50 MPV 8.4 fL (7.4-11.0) 03/18/24 04:50 Neut % (Auto) 90.7 % (42.0-75.0) H 03/18/24 04:50 Lymph % (Auto) 5.9 % (21.0-51.0) L 03/18/24 04:50 [place] % (Auto) 3.3 % (0.0-13.0) 03/18/24 04:50 Eos % (Auto) 0.0 % (0.9-2.9) L 03/18/24 04:50 Baso % (Auto) 0.1 % (0.2-1.0) L 03/18/24 04:50 Neut # (Auto) 16.8 x10^3/uL (2.2-4.8) H 03/18/24 04:50 Lymph # (Auto) 1.1 X10^3/uL (1.3-2.9) L 03/18/24 04:50 [place] # (Auto) 0.6 x10^3/uL (0.3-0.8) 03/18/24 04:50 Eos # (Auto) 0.0 x10^3/uL (0.0-0.2) 03/18/24 04:50 Baso # (Auto) 0.0 X10^3/uL (0.0-0.1) 03/18/24 04:50 Absolute Nucleated RBC 0.1 /100WBC 03/18/24 04:50 Total Counted 100 03/18/24 04:50 Neutrophils % (Manual) 84 % (39-76) H 03/18/24 04:50 Band Neutrophils % 5 % (0-10) 03/18/24 04:50 Lymphocytes % (Manual) 9 % (13-43) L 03/18/24 04:50 Monocytes % (Manual) 2 % (4-9) L 03/18/24 04:50 Nucleated RBCs 1 03/18/24 04:50 Plt Morphology Comment Normal (NORMAL) 03/18/24 04:50 RBC Morphology Normal (NORMAL) 03/18/24 04:50 APTT 36.4 SECONDS (22.9-36.5) 03/15/24 20:10 PTT Comment - 03/15/24 20:10 D-Dimer 0.97 ug/ml (0.0-0.57) H 03/15/24 20:10 Sample Site L rad 03/17/24 05:17 ABG pH 7.520 (7.35-7.45) H 03/17/24 05:17 ABG pCO2 27.0 mmHg (35.0-45.0) L 03/17/24 05:17 ABG pO2 68.0 mmHg (80.0-100.0) L 03/17/24 05:17 ABG HCO3 22.0 mmol/L (22-26) 03/17/24 05:17 ABG O2 Saturation 95.0 % (90-100) 03/17/24 05:17 ABG Base Excess 0.2 mmol/L (-2.0-2.0) 03/17/24 05:17 [place] Test Pos 03/17/24 05:17 A-a Gradient 48.0 mmHg 03/17/24 05:17 FiO2 21.0 03/17/24 05:17 Blood Gas Comments Marilyn well drafter seismograph 03/17/24 05:17 Sodium 140 mmol/L (136-145) 03/18/24 04:50 Corrected Sodium 142 mmol/L (136-145) 03/18/24 04:50 Potassium 3.9 mmol/L (3.5-5.1) 03/18/24 04:50 Chloride 106 mmol/L (98-107) 03/18/24 04:50 Carbon Dioxide 25.2 mmol/L (21-32) 03/18/24 04:50 BUN 6 mg/dL (7-18) L 03/18/24 04:50 Creatinine 0.60 mg/dL (0.55-1.02) 03/18/24 04:50 Est GFR (MDRD) Af Amer > 60 (>60) 03/18/24 04:50 Est GFR (MDRD) Non-Af > 60 (>60) 03/18/24 04:50 Glucose 170 mg/dL (65-99) H 03/18/24 04:50 Lactic Acid 0.7 mmol/L (0.4-2.0) 03/15/24 20:10 Calcium 8.5 mg/dL (8.5-10.1) 03/18/24 04:50 Corrected Calcium 9.6 mg/dL (8.5-10.1) 03/18/24 04:50 Magnesium 2.1 mg/dL (2.0-2.9) 03/17/24 04:34 Total Bilirubin 0.10 mg/dL (0.2-1.0) L 03/18/24 04:50 AST 35 Units/L (15-37) 03/18/24 04:50 ALT 68 Units/L (12-78) 03/18/24 04:50 Alkaline Phosphatase 135 Units/L (46-116) H 03/18/24 04:50 Total Protein 6.8 g/dL (6.4-8.2) 03/18/24 04:50 Albumin 2.6 g/dL (3.4-5.0) L 03/18/24 04:50 Globulin 4.2 g/dL (2.5-4.5) 03/18/24 04:50 Albumin/Globulin Ratio 0.6 Ratio (1.1-2.1) L 03/18/24 04:50 Specimen Type Clean catch urine 03/15/24 19:57 Urine Color Yellow (YELLOW) 03/15/24 19:57 Urine Appearance Clear (CLEAR) 03/15/24 19:57 Urine pH 6.0 (5.0 - 8.0) 03/15/24 19:57 Ur Specific [place] 1.020 (1.000-1.030) 03/15/24 19:57 Urine Protein 1+ (NEGATIVE) 03/15/24 19:57 Urine Glucose (UA) Negative (NEGATIVE) 03/15/24 19:57 Urine Ketones Negative (NEGATIVE) 03/15/24 19:57 Urine Blood Negative (NEGATIVE) 03/15/24 19:57 Urine Nitrite Negative (NEGATIVE) 03/15/24 19:57 Urine Bilirubin Negative (NEGATIVE) 03/15/24 19:57 Urine Urobilinogen Normal (NORMAL) 03/15/24 19:57 Ur Leukocyte Esterase Negative (NEGATIVE) 03/15/24 19:57 Urine RBC 0-2 /HPF (0-3) 03/15/24 19:57 Urine WBC 0-2 /HPF (0-5) 03/15/24 19:57 Ur Squamous Epith Cells Few /HPF (NEGATIVE) 03/15/24 19:57 Urine Bacteria Trace /HPF (NEGATIVE) 03/15/24 19:57 Ur Culture Indicated? No/not indicated 03/15/24 19:57 SARS-CoV-2 (PCR) Negative (NEGATIVE) 03/15/24 19:57 Resp Viral Panel (PCR) See scanned report 03/16/24 00:09 Plan (1) Pneumonia of both lungs: Status: Acute Qualifiers: Pneumonia type: due to Mycoplasma pneumoniae Lung location: unspecified part of lung Qualified Code(s): J15.7 - Pneumonia due to Mycoplasma pneumoniae (2) Hypoxemia: Status: Acute
[2024-03-18] MEDS: SOLU-Medrol 125 MG VIAL IVP SCH (20:44)
[2024-03-19 06:44] LABS: BASOPHILS % (AUTO) 0.1 % (0.2-1.0); NEUTROPHILS # (AUTO) 11.2 x10^3/uL (2.2-4.8); WHITE BLOOD COUNT 13.4 X10^3/uL (3.6-10.0)
[2024-03-19 06:48] LABS: HEMATOCRIT 34.2 % (36.0-47.0); HEMOGLOBIN 11.3 g/dL (12.0-16.0); LYMPHOCYTES # (AUTO) 1.5 X10^3/uL (1.3-2.9); LYMPHOCYTES % (AUTO) 11.5 % (21.0-51.0); MEAN CORPUSCULAR HEMOGLOBIN 31.8 pg (27.0-34.0); MEAN CORPUSCULAR VOLUME 96.4 fL (80.0-100.0); MEAN PLATELET VOLUME 7.9 fL (7.4-11.0); MONOCYTES # (AUTO) 0.7 x10^3/uL (0.3-0.8); MONOCYTES % (AUTO) 4.9 % (0.0-13.0); NEUTROPHILS % (AUTO) 83.5 % (42.0-75.0); PLATELET COUNT 383 X10^3/uL (150.0-450.0); RED BLOOD COUNT 3.54 X10^6/uL (3.5-5.4); RED CELL DISTRIBUTION WIDTH 14.3 % (11.6-16.5)
[2024-03-19 06:56] LABS: ALANINE AMINOTRANSFERASE 62 Units/L (12-78); ALBUMIN 2.6 g/dL (3.4-5.0); ALKALINE PHOSPHATASE 124 Units/L (46-116); ASPARTATE AMINO TRANSFERASE 25 Units/L (15-37); BLOOD UREA NITROGEN 8 mg/dL (7-18); CARBON DIOXIDE 27.4 mmol/L (21-32); CHLORIDE 105 mmol/L (98-107); COR CA(FOR HYPOALB) 9.1 mg/dL (8.5-10.1); COR NA(FOR HYPERGLY) 142 mmol/L (136-145); CREATININE 0.63 mg/dL (0.55-1.02); GLUCOSE 164 mg/dL (65-99); POTASSIUM 3.8 mmol/L (3.5-5.1); SODIUM 140 mmol/L (136-145); TOTAL PROTEIN 6.6 g/dL (6.4-8.2); eGFR NON BLACK RACES > 60 (>60)
[2024-03-19] MEDS ORDERED: VIBRAMYCIN IV ONE (10:01)
[2024-03-20] MEDS ORDERED: CONSULT PHARMACY - POTASSIUM & MAGNESIUM XX SCH (07:00)
[2024-03-20 08:58] VITALS: O2SAT 98
[2024-03-20 09:00] LABS: ABG ALLEN TEST POS; ABG HCO3 25.2 mmol/L (22-26)
[2024-03-20] MEDS: K-DUR TAB 20 MEQ PO SCH (09:56)
--- NOTE | 2024-03-20 10:12 | PCM.PROG ---
Progress Note Progress Note for Day of Date of Exam: 03/19/24 Subjective Subjective: Patient seen at bedside, no acute events overnight. She is feeling better. She is admitted for Mycoplasma pneumonia. She has been on room air and intermittent 2L NC. She has been ambulating in the room. She states cough is better. Labs/imaging reviewed -WBC 13.4 Hgb 11.3 -AIT: Mycoplasma -CXR: no acute process -Sputum Cx: neg Plan: Wean O2 as tolerated, continue nebs and cough suppressant. Continue antibiotics. RT to do walk test for home O2 eval. Encourage ambulation as jimmy erated. Continue IS. Monitor AM labs/imaging. Past Medical Family Social History Allergies: Allergies No Known Drug Allergies Allergy (Verified 03/15/24 15:43) Vital Signs and I&O's Vital Signs: Vital Signs Temperature 97.6 F Pulse Rate [Brachial] 57 Pulse Rate 75 Respiratory Rate 18 Blood Pressure [Right Arm] 163/85 O2 Sat by Pulse Oximetry 98 O2 Sat by Pulse Oximetry 97 Intake and Output: Intake & Output 03/17/24 03/18/24 03/19/24 03/20/24 23:59 23:59 23:59 23:59 Intake Total 3279 / 3279 3954 / 3954 4848 / 4848 320 / 320 Balance 3279 / 3279 3954 / 3954 4848 / 4848 320 / 320 Physical Exam Oriented: Normal Eyes: Normal Ear: Normal Nose: Normal Throat: Red Respiratory: Generalized and Diminished Cardiovascular: Normal Auscultation: Bowel Sounds: Normal Palpation: Normal Tenderness: Normal Skin: Normal Musculoskeletal: Normal Psychiatric: Normal Mood Description: Calm Speech Pattern: Appropriate Laboratory and Diagnostics 03/19/24 06:20 03/19/24 06:20 Labs: 03/16/24 11:42 Sputum - Expectorated Sputum Sputum Culture - Final 03/16/24 11:42 Sputum - Expectorated Sputum - Final 03/15/24 20:40 Blood Blood Culture - Preliminary 03/15/24 20:10 Blood Blood Culture - Preliminary Laboratory WBC 13.4 X10^3/uL (3.6-10.0) H 03/19/24 06:20 RBC 3.54 X10^6/uL (3.5-5.4) 03/19/24 06:20 Hgb 11.3 g/dL (12.0-16.0) L 03/19/24 06:20 Hct 34.2 % (36.0-47.0) L 03/19/24 06:20 MCV 96.4 fL (80.0-100.0) 03/19/24 06:20 MCH 31.8 pg (27.0-34.0) 03/19/24 06:20 MCHC 33.0 g/dL (33.0-35.0) 03/19/24 06:20 RDW 14.3 % (11.6-16.5) 03/19/24 06:20 Plt Count 383 X10^3/uL (150.0-450.0) 03/19/24 06:20 Plt Count Comment Adequate (ADEQUATE) 03/18/24 04:50 MPV 7.9 fL (7.4-11.0) 03/19/24 06:20 Neut % (Auto) 83.5 % (42.0-75.0) H 03/19/24 06:20 Lymph % (Auto) 11.5 % (21.0-51.0) L 03/19/24 06:20 [place] % (Auto) 4.9 % (0.0-13.0) 03/19/24 06:20 Eos % (Auto) 0.0 % (0.9-2.9) L 03/19/24 06:20 Baso % (Auto) 0.1 % (0.2-1.0) L 03/19/24 06:20 Neut # (Auto) 11.2 x10^3/uL (2.2-4.8) H 03/19/24 06:20 Lymph # (Auto) 1.5 X10^3/uL (1.3-2.9) 03/19/24 06:20 [place] # (Auto) 0.7 x10^3/uL (0.3-0.8) 03/19/24 06:20 Eos # (Auto) 0.0 x10^3/uL (0.0-0.2) 03/19/24 06:20 Baso # (Auto) 0.0 X10^3/uL (0.0-0.1) 03/19/24 06:20 Absolute Nucleated RBC 0.0 /100WBC 03/19/24 06:20 Total Counted 100 03/18/24 04:50 Neutrophils % (Manual) 84 % (39-76) H 03/18/24 04:50 Band Neutrophils % 5 % (0-10) 03/18/24 04:50 Lymphocytes % (Manual) 9 % (13-43) L 03/18/24 04:50 Monocytes % (Manual) 2 % (4-9) L 03/18/24 04:50 Nucleated RBCs 1 03/18/24 04:50 Plt Morphology Comment Normal (NORMAL) 03/18/24 04:50 RBC Morphology Normal (NORMAL) 03/18/24 04:50 APTT 36.4 SECONDS (22.9-36.5) 03/15/24 20:10 PTT Comment - 03/15/24 20:10 D-Dimer 0.97 ug/ml (0.0-0.57) H 03/15/24 20:10 Sample Site Lrad 03/20/24 08:55 ABG pH 7.430 (7.35-7.45) 03/20/24 08:55 ABG pCO2 38.0 mmHg (35.0-45.0) 03/20/24 08:55 ABG pO2 65.0 mmHg (80.0-100.0) L 03/20/24 08:55 ABG HCO3 25.2 mmol/L (22-26) 03/20/24 08:55 ABG O2 Saturation 93.0 % (90-100) 03/20/24 08:55 ABG Base Excess 1.0 mmol/L (-2.0-2.0) 03/20/24 08:55 Preston Test Pos 03/20/24 08:55 A-a Gradient 37.0 mmHg 03/20/24 08:55 FiO2 21.0 03/20/24 08:55 Blood Gas Comments Jimmy well ms 03/20/24 08:55 Sodium 140 mmol/L (136-145) 03/19/24 06:20 Corrected Sodium 142 mmol/L (136-145) 03/19/24 06:20 Potassium 3.8 mmol/L (3.5-5.1) 03/19/24 06:20 Chloride 105 mmol/L (98-107) 03/19/24 06:20 Carbon Dioxide 27.4 mmol/L (21-32) 03/19/24 06:20 BUN 8 mg/dL (7-18) 03/19/24 06:20 Creatinine 0.63 mg/dL (0.55-1.02) 03/19/24 06:20 Est GFR (MDRD) Af Amer > 60 (>60) 03/19/24 06:20 Est GFR (MDRD) Non-Af > 60 (>60) 03/19/24 06:20 Glucose 164 mg/dL (65-99) H 03/19/24 06:20 Lactic Acid 0.7 mmol/L (0.4-2.0) 03/15/24 20:10 Calcium 8.0 mg/dL (8.5-10.1) L 03/19/24 06:20 Corrected Calcium 9.1 mg/dL (8.5-10.1) 03/19/24 06:20 Magnesium 2.1 mg/dL (2.0-2.9) 03/17/24 04:34 Total Bilirubin 0.10 mg/dL (0.2-1.0) L 03/19/24 06:20 AST 25 Units/L (15-37) 03/19/24 06:20 ALT 62 Units/L (12-78) 03/19/24 06:20 Alkaline Phosphatase 124 Units/L (46-116) H 03/19/24 06:20 Total Protein 6.6 g/dL (6.4-8.2) 03/19/24 06:20 Albumin 2.6 g/dL (3.4-5.0) L 03/19/24 06:20 Globulin 4.0 g/dL (2.5-4.5) 03/19/24 06:20 Albumin/Globulin Ratio 0.7 Ratio (1.1-2.1) L 03/19/24 06:20 Specimen Type Clean catch urine 03/15/24 19:57 Urine Color Yellow (YELLOW) 03/15/24 19:57 Urine Appearance Clear (CLEAR) 03/15/24 19:57 Urine pH 6.0 (5.0 - 8.0) 03/15/24 19:57 Ur Specific [place] 1.020 (1.000-1.030) 03/15/24 19:57 Urine Protein 1+ (NEGATIVE) 03/15/24 19:57 Urine Glucose (UA) Negative (NEGATIVE) 03/15/24 19:57 Urine Ketones Negative (NEGATIVE) 03/15/24 19:57 Urine Blood Negative (NEGATIVE) 03/15/24 19:57 Urine Nitrite Negative (NEGATIVE) 03/15/24 19:57 Urine Bilirubin Negative (NEGATIVE) 03/15/24 19:57 Urine Urobilinogen Normal (NORMAL) 03/15/24 19:57 Ur Leukocyte Esterase Negative (NEGATIVE) 03/15/24 19:57 Urine RBC 0-2 /HPF (0-3) 03/15/24 19:57 Urine WBC 0-2 /HPF (0-5) 03/15/24 19:57 Ur Squamous Epith Cells Few /HPF (NEGATIVE) 03/15/24 19:57 Urine Bacteria Trace /HPF (NEGATIVE) 03/15/24 19:57 Ur Culture Indicated? No/not indicated 03/15/24 19:57 SARS-CoV-2 (PCR) Negative (NEGATIVE) 03/15/24 19:57 Resp Viral Panel (PCR) See scanned report 03/16/24 00:09 Plan (1) Mycoplasma pneumonia: Status: Acute Qualifiers: Laterality: bilateral Lung location: unspecified part of lung Qualified Code(s): J15.7 - Pneumonia due to Mycoplasma pneumoniae (2) Pneumonia of both lungs: Status: Acute Qualifiers: Lung location: unspecified part of lung Pneumonia type: due to Mycoplasma pneumoniae Qualified Code(s): J15.7 - Pneumonia due to Mycoplasma pneumoniae (3) Hypoxemia: Status: Acute
[2024-03-20 10:53] LABS: BASOPHILS % (AUTO) 0.2 % (0.2-1.0); HEMOGLOBIN 12.4 g/dL (12.0-16.0); LYMPHOCYTES # (AUTO) 2.6 X10^3/uL (1.3-2.9); LYMPHOCYTES % (AUTO) 15.3 % (21.0-51.0); MEAN CORPUSCULAR HEMOGLOBIN 30.8 pg (27.0-34.0); MEAN CORPUSCULAR HGB CONC 31.9 g/dL (33.0-35.0); MEAN CORPUSCULAR VOLUME 96.3 fL (80.0-100.0); MEAN PLATELET VOLUME 7.9 fL (7.4-11.0); MONOCYTES # (AUTO) 1.2 x10^3/uL (0.3-0.8); MONOCYTES % (AUTO) 7.3 % (0.0-13.0); NEUTROPHILS # (AUTO) 13.1 x10^3/uL (2.2-4.8); NEUTROPHILS % (AUTO) 77.2 % (42.0-75.0); PLATELET COUNT 431 X10^3/uL (150.0-450.0); RED BLOOD COUNT 4.05 X10^6/uL (3.5-5.4); RED CELL DISTRIBUTION WIDTH 14.2 % (11.6-16.5)
[2024-03-20 10:59] LABS: ALANINE AMINOTRANSFERASE 61 Units/L (12-78); ALBUMIN 2.9 g/dL (3.4-5.0); ALKALINE PHOSPHATASE 120 Units/L (46-116); ASPARTATE AMINO TRANSFERASE 20 Units/L (15-37); BLOOD UREA NITROGEN 11 mg/dL (7-18); CALCIUM 8.8 mg/dL (8.5-10.1); CARBON DIOXIDE 28.8 mmol/L (21-32); CHLORIDE 101 mmol/L (98-107); COR CA(FOR HYPOALB) 9.7 mg/dL (8.5-10.1); GLUCOSE 89 mg/dL (65-99); POTASSIUM 3.7 mmol/L (3.5-5.1); SODIUM 137 mmol/L (136-145); TOTAL PROTEIN 7.1 g/dL (6.4-8.2); eGFR NON BLACK RACES > 60 (>60)
[2024-03-20 11:10] LABS: PLATELET MORPHOLOGY COMMENT NORMAL (NORMAL)
--- NOTE | 2024-03-20 15:11 | RAD ---
EXAM:CHEST, PA/LAT ADULTHISTORY:PNEUMONIA. HYPOXIA;COMPARISON:Prior study or studies were utilized for comparison during interpretation with the most relevant dated 03/17/2024TECHNIQUE:CHEST, PA/LAT ADULTFINDINGS:Chest:Lines and tubes: NoneMediastinum: Cardiac and mediastinal shadow is within normal limits for size and contour.Pulmonary vessels: No pulmonary vascular congestion.Lung olguin: No suspicious airspace opacity.Pleura: No effusion. No pneumothorax.Bones and soft tissues: No acute osseous or soft tissue abnormality.IMPRESSION:1. No acute cardiopulmonary abnormalityTHIS IS AN ELECTRONICALLY VERIFIED FINAL REPORT03/20/2024 3:08 PM - Electronically signed by Mg Corona MD
[2024-03-20 17:52] VITALS: BP 121/72; PULSE 65; RESP 18; TEMP 97.2
== END 2024-03-20 19:40 | disposition home or self-care (01) | DRG 195 ==
LOC: ER 19:45 → MED/SURG 23:38
PROVIDERS: ADMIT Internal Medicine; ATTEND Internal Medicine
DX: R09.02 Hypoxemia; E03.8 Other specified hypothyroidism; R06.02 Shortness of breath; R51.9 Headache, unspecified; I10 Essential (primary) hypertension; E88.09 Other disorders of plasma-protein metabolism, not elsewhere classified; J15.7 Pneumonia due to Mycoplasma pneumoniae; R07.89 Other chest pain; E11.65 Type 2 diabetes mellitus with hyperglycemia; Z20.822 Contact with and (suspected) exposure to COVID-19